=== PATIENT | female | born 1945 | race Caucasian/White ===

== ENCOUNTER → 2016-03-19 | Outpatient (CLI) | payer OTHER ==
--- NOTE | 2016-03-19 19:42 | DX ---
DEXA Bone Mineral Densitometry Indication: 70-year-old postmenopausal woman with family history of osteoporosis. Patient takes Synt hroid and supplemental vitamin D. Comparison: None. Technique: Bone Mineral Densitometry (BMD) by Dual Energy X-Ray Absorptiometry (DEXA) was performed utilizing the [employer] scanner. The lumbar spine was evaluated in the AP projection. The bilat eral hips and left forearm were evaluated in the AP projection. Vertebral fracture assessment was al so performed. AP Lumbar Spine: The L1, L2, L3 and L4 vertebral bodies were evaluated. BMD: 1.408 gm/cm2 T-score: 1.7 SD Z-score: 3.3 SD AP Left Hip: Neck BMD: 0.748 gm/cm2 T-score: -2.1 SD Z-score: -0.5 SD AP Right Hip: Neck BMD: 0.709 gm/cm2 T-score: -2.4 SD Z-score: -0.8 SD AP Left Forearm, 02/09: BMD: 0.629 gm/cm2 T-score: -2.8 SD Z-score: -1 SD Vertebral Fracture Assessment: No significant fracture deformity. Degenerative disk and facet arthr opathy artificially increases the BMD measurement in the lumbar spine. Conclusion: Considering the lowest measured site (forearm), the patient is osteoporotic with a T-sco re of -2.8. The ten year risk for any major osteoporotic fracture is 22.7% and for a hip fracture is 7%. Any bone loss in this patient is probably related to aging or estrogen deficiency. Preferential demineralization of the forearm suggests underlying hyperparathyroidism. Recommendation: Consider excluding secondary metabolic causes of bone loss (reported to be present i n as many as 30% of patients with normal Z scores). Laboratory evaluation might include hydroxy rubio min D3 level, TSH, PTH, calcium, 24-hour urine calcium, phosphorous, albumin, creatinine, alkaline ph osphatase, serum electrophoresis (SPEP or UPEP), antitissue transglutaminase antibody levels (celiac disease) and CBC. If secondary causes are excluded, then consider initiating treatment with a bispho sphonate (such as Fosamax, Actonel or Boniva). If the patient is unable to use an oral bisphosphonat e, another agent such as IV bisphosphonates (Boniva or Reclast), teriparatide (Forteo), or a selectiv e estrogen receptor modulator (Evista) might be considered. Supplementing an insufficient diet to achieve total intakes of 1500 mg calcium and 800 International Units of vitamin D daily should be considered. Osteoporosis prevention and treatment begin by modify ing risk factors. The patient should be encouraged to participate in a regular exercise program that includes weightbearing and muscle-strengthening regimens, as is clinically appropriate. Recommend follow up DEXA in one year to assess the efficacy of pharmacologic intervention and/or omid ection of appropriate secondary cause.
== END ==
LOC: FIMAGING 10:17
DX: Z13.820 Encounter for screening for osteoporosis (principal); M81.0 Age-related osteoporosis without current pathological fracture; Z78.0 Asymptomatic menopausal state; Z82.62 Family history of osteoporosis

== ENCOUNTER → 2017-06-14 | Outpatient (CLI) | payer OTHER | LOC: FIMAGING 13:29 | DX: Z13.820 Encounter for screening for osteoporosis (principal); M81.0 Age-related osteoporosis without current pathological fracture; Z78.0 Asymptomatic menopausal state ==